=== PATIENT | female | born 1940 | race Caucasian/White ===

== ENCOUNTER 2021-01-13 10:14 | Inpatient (IN) | payer OTHER ==
[2021-01-13] MEDS ORDERED: PIPERACILLIN/TAZOB 4.5 GM 4.5 GM in DEXTROSE 5%-WATER 100 ML IVPB ONE (10:21)
[2021-01-13] MEDS ORDERED: VANCOMYCIN 1 GM in D5W (PRE-DOCKED) 1,000 MG/250 ML IVPB ONE (10:21)
[2021-01-13] MEDS ORDERED: ACETAMINOPHEN 1000 MG/100 ML VIAL (NON FORMULARY) IVPB ONE (10:21)
[2021-01-13 10:49] VITALS: BMI 25.4
[2021-01-13] MEDS ORDERED: SODIUM CHLORIDE 0.9% 500 ML INFUS.BAG IV ONE (10:50)
[2021-01-13 10:51] LABS: VENOUS BASE EXCESS 2.5 mmol/L (-2-2); VENOUS PCO2 45.4 mmHg (38-52); VENOUS PH 7.403 (7.310-7.410)
[2021-01-13 10:52] LABS: BASO % 0.4 % (0-2.0); HEMATOCRIT 33.2 % (32.4-45.2); HEMOGLOBIN 10.6 GM/dL (10.7-15.3); LYMPH % 5.8 % (8-40); MCH 28.3 pg (25.7-33.7); MCHC 31.8 g/dl (32.0-36.0); MEAN CELL VOLUME 88.9 fl (80-96); MEAN PLT VOLUME 9.2 fl (7.5-11.1); MONO % 5.3 % (3.8-10.2); NEUT % 88.5 % (42.8-82.8); PLATELET COUNT 376 10^3/uL (134-434); RBC 3.74 M/mm3 (3.60-5.2); RDW 16.6 % (11.6-15.6); WHITE BLOOD COUNT 23.7 K/mm3 (4.0-10.0)
[2021-01-13 11:00] LABS: INR 1.57 (0.83-1.09); PROTHROMBIN TIME (PATIENT) 18.8 SEC (9.7-13.0)
[2021-01-13 11:02] LABS: ACTIVATED PTT 30.4 SECONDS (25.2-36.5)
[2021-01-13 11:19] LABS: URINE APPEARANCE CLEAR; URINE BILIRUBIN NEGATIVE (NEGATIVE); URINE COLOR YELLOW; URINE GLUCOSE (UA) NEGATIVE (NEGATIVE)
[2021-01-13 11:20] LABS: HYALINE CASTS 347.86 /uL (0-3.1); URINE BACTERIA 20810.4 /uL (0-1359); URINE KETONE NEGATIVE (NEGATIVE); URINE LEUK ESTERASE 3+ (NEGATIVE); URINE NITRITE NEGATIVE (NEGATIVE); URINE PROTEIN 1+ (NEGATIVE); URINE RBC 108.5 /uL (0-23.9); URINE WBC 13448.3 /uL (0-25.8)
[2021-01-13 11:21] LABS: ALBUMIN 2.5 g/dl (3.4-5.0); BLOOD UREA NITROGEN 81.6 mg/dL (7-18); CALCIUM 9.3 mg/dL (8.5-10.1)
[2021-01-13 11:25] LABS: CREATININE 1.7 mg/dL (0.55-1.3)
[2021-01-13 11:26] LABS: BILIRUBIN,TOTAL 0.4 mg/dL (0.2-1); TOT PROT 9.2 g/dl (6.4-8.2)
[2021-01-13 11:27] LABS: LACTIC ACID 3.5 mmol/L (0.4-2.0)
[2021-01-13] MEDS ORDERED: PIPERACILLIN/TAZOB 4.5 GM 4.5 GM/100 ML BAG IVPB ONE (11:34)
[2021-01-13 11:35] LABS: YEAST NON SEEN (NEGATIVE)
[2021-01-13] MEDS ORDERED: SODIUM CHLORIDE 1,000 ML IV ONE (11:55)
[2021-01-13 12:41] LABS: ANISOCYTOSIS 1+; MACROCYTOSIS 0; OVALOCYTE 1+; PLATELET ESTIMATE NORMAL; TEAR DROP CELLS 1+
[2021-01-13 14:35] LABS: CALCIUM 8.4 mg/dL (8.5-10.1)
[2021-01-13 14:36] LABS: ALBUMIN 2.2 g/dl (3.4-5.0); BLOOD UREA NITROGEN 79.4 mg/dL (7-18)
[2021-01-13 14:39] LABS: CREATININE 1.7 mg/dL (0.55-1.3)
[2021-01-13 14:40] LABS: BILIRUBIN,TOTAL 0.4 mg/dL (0.2-1)
[2021-01-13 14:41] LABS: LACTIC ACID 2.3 mmol/L (0.4-2.0); TOT PROT 7.5 g/dl (6.4-8.2)
[2021-01-13] MEDS ORDERED: ACETAMINOPHEN 650 MG/20.3 ML ORAL SOLUTION (CUPS) PO PRN (15:14)
[2021-01-13] MEDS: SODIUM CHLORIDE 1,000 ML IV SCH (16:21)
[2021-01-13] MEDS ORDERED: PNEUMOC 13-VAL CONJ-DIP CRM/PF 0.5 ML DISP.SYRIN IM ONE (19:00)
[2021-01-13] MEDS ORDERED: PT OWN MED DRAWER 7, Y5N ONE (22:28)
[2021-01-13] MEDS: METOPROLOL TARTRATE 25 MG TABLET (FP) GT SCH (22:40)
[2021-01-13] MEDS: levETIRAcetam 500 MG/5 ML ORAL SOLUTION (UNIT-DOSE CUPS) GT SCH (23:20)
[2021-01-13] MEDS: ATORVASTATIN CA 10 MG TABLET (FP) GT SCH (23:20)
[2021-01-14] MEDS ORDERED: PIPERACILLIN/TAZOBACTAM 3.375 GM VIAL IVPB ONE ×3 (01:26→18:01)
[2021-01-14] MEDS ORDERED: DEXTROSE 5%-WATER - 50 ML IVPB ONE ×3 (01:26→18:01)
[2021-01-14] MEDS: PIPERACILLIN/TAZOB 3.375 GM 3.375 GM in DEXTROSE 5%-WATER - 50 ML IVPB SCH ×4 (01:42→19:01)
[2021-01-14] MEDS ORDERED: PIPERACILLIN/TAZOB 3.375 GM 3.375 GM in DEXTROSE 5%-WATER - 50 ML IVPB SCH (02:00)
[2021-01-14 07:49] LABS: HEMATOCRIT 25.3 % (32.4-45.2); HEMOGLOBIN 8.2 GM/dL (10.7-15.3); MCH 28.4 pg (25.7-33.7); MCHC 32.4 g/dl (32.0-36.0); MEAN CELL VOLUME 87.9 fl (80-96); MEAN PLT VOLUME 9.1 fl (7.5-11.1); PLATELET COUNT 230 10^3/uL (134-434); RBC 2.88 M/mm3 (3.60-5.2); RDW 16.4 % (11.6-15.6); WHITE BLOOD COUNT 12.9 K/mm3 (4.0-10.0)
[2021-01-14] MEDS: METOPROLOL TARTRATE 25 MG TABLET (FP) GT SCH ×2 (09:36→21:11)
[2021-01-14] MEDS: ASPIRIN 81 MG CHEWABLE TABLETS GT SCH (09:36)
[2021-01-14] MEDS: ENOXAPARIN NA (PORCINE) 30 MG/0.3 ML DISP.SYRIN SQ SCH (09:37)
[2021-01-14] MEDS: levETIRAcetam 500 MG/5 ML ORAL SOLUTION (UNIT-DOSE CUPS) GT SCH ×2 (09:50→21:12)
[2021-01-14] MEDS ORDERED: PT OWN MED DRAWER 7, Y5N ONE ×2 (09:57→21:12)
[2021-01-14] MEDS ORDERED: PANTOPRAZOLE SOD 40 MG SUSPENSION PACKET PO SCH (10:00)
[2021-01-14] MEDS: FAMOTIDINE 40 MG/5 ML ORAL SUSPENSION NGT SCH (10:31)
[2021-01-14] MEDS: POLYETHYLENE GLYCOL 3350 119 GM BTL GT SCH ×2 (10:41→16:45)
[2021-01-14 10:49] LABS: CALCIUM 8.4 mg/dL (8.5-10.1)
[2021-01-14 10:50] LABS: ALBUMIN 2.1 g/dl (3.4-5.0); BLOOD UREA NITROGEN 88.3 mg/dL (7-18)
[2021-01-14 10:53] LABS: CREATININE 1.6 mg/dL (0.55-1.3)
[2021-01-14 10:54] LABS: BILIRUBIN,TOTAL 0.4 mg/dL (0.2-1); TOT PROT 7.2 g/dl (6.4-8.2)
[2021-01-14 11:11] LABS: BASO % 0.4 % (0-2.0); EOS % 0.8 % (0-4.5); HEMATOCRIT 25.5 % (32.4-45.2); HEMOGLOBIN 8.1 GM/dL (10.7-15.3); LYMPH % 19.9 % (8-40); MCH 28.1 pg (25.7-33.7); MCHC 31.9 g/dl (32.0-36.0); MEAN CELL VOLUME 88.1 fl (80-96); MEAN PLT VOLUME 9.1 fl (7.5-11.1); MONO % 6.1 % (3.8-10.2); NEUT % 72.8 % (42.8-82.8); PLATELET COUNT 209 10^3/uL (134-434); RDW 16.6 % (11.6-15.6); WHITE BLOOD COUNT 12.2 K/mm3 (4.0-10.0)
[2021-01-14 11:38] LABS: CALCIUM 8.5 mg/dL (8.5-10.1)
[2021-01-14 11:42] LABS: CREATININE 1.5 mg/dL (0.55-1.3)
[2021-01-14 11:43] LABS: BILIRUBIN,TOTAL 0.4 mg/dL (0.2-1)
[2021-01-14] MEDS ORDERED: VANCOMYCIN 1,000 MG in DEXTROSE 5%-WATER - 250 ML IVPB SCH (12:00)
[2021-01-14] MEDS ORDERED: VANCOMYCIN 1 GRAM (PRE-DOCKED) 1,000 MG/250 ML BAG IVPB SCH (12:00)
[2021-01-14] MEDS: SODIUM CHLORIDE 1,000 ML IV SCH (16:46)
[2021-01-14] MEDS: POLYETHYLENE GLYCOL (HEALTHYLAX) 3350 17 GM PACKET GT SCH (17:00)
[2021-01-14] MEDS: ATORVASTATIN CA 10 MG TABLET (FP) GT SCH (21:11)
[2021-01-15] MEDS ORDERED: DEXTROSE 5%-WATER - 50 ML IVPB ONE ×3 (00:08→17:17)
[2021-01-15] MEDS ORDERED: PIPERACILLIN/TAZOBACTAM 3.375 GM VIAL IVPB ONE ×3 (00:08→17:17)
[2021-01-15] MEDS: PIPERACILLIN/TAZOB 3.375 GM 3.375 GM in DEXTROSE 5%-WATER - 50 ML IVPB SCH ×3 (01:11→17:19)
[2021-01-15] MEDS ORDERED: SODIUM CHLORIDE 0.45% 1,000 ML IV SCH (09:45)
[2021-01-15] MEDS ORDERED: PT OWN MED DRAWER 7, Y5N ONE ×2 (09:49→21:11)
[2021-01-15] MEDS: levETIRAcetam 500 MG/5 ML ORAL SOLUTION (UNIT-DOSE CUPS) GT SCH ×2 (09:53→21:46)
[2021-01-15] MEDS: ASPIRIN 81 MG CHEWABLE TABLETS GT SCH (09:53)
[2021-01-15] MEDS: METOPROLOL TARTRATE 25 MG TABLET (FP) GT SCH ×2 (09:53→21:46)
[2021-01-15] MEDS: POLYETHYLENE GLYCOL (HEALTHYLAX) 3350 17 GM PACKET GT SCH (09:53)
[2021-01-15] MEDS: FAMOTIDINE 40 MG/5 ML ORAL SUSPENSION NGT SCH (09:54)
[2021-01-15] MEDS: ENOXAPARIN NA (PORCINE) 30 MG/0.3 ML DISP.SYRIN SQ SCH (09:54)
[2021-01-15] MEDS: ATORVASTATIN CA 10 MG TABLET (FP) GT SCH (21:46)
[2021-01-16] MEDS ORDERED: DEXTROSE 5%-WATER - 50 ML IVPB ONE ×3 (01:36→17:17)
[2021-01-16] MEDS ORDERED: PIPERACILLIN/TAZOBACTAM 3.375 GM VIAL IVPB ONE ×3 (01:36→17:17)
[2021-01-16] MEDS: PIPERACILLIN/TAZOB 3.375 GM 3.375 GM in DEXTROSE 5%-WATER - 50 ML IVPB SCH ×3 (01:37→17:32)
[2021-01-16] MEDS ORDERED: PT OWN MED DRAWER 7, Y5N ONE ×2 (09:50→21:18)
[2021-01-16] MEDS: FAMOTIDINE 40 MG/5 ML ORAL SUSPENSION NGT SCH (10:26)
[2021-01-16] MEDS: ENOXAPARIN NA (PORCINE) 30 MG/0.3 ML DISP.SYRIN SQ SCH (10:26)
[2021-01-16] MEDS: levETIRAcetam 500 MG/5 ML ORAL SOLUTION (UNIT-DOSE CUPS) GT SCH ×2 (10:26→21:49)
[2021-01-16] MEDS: ASPIRIN 81 MG CHEWABLE TABLETS GT SCH (10:26)
[2021-01-16] MEDS: POLYETHYLENE GLYCOL (HEALTHYLAX) 3350 17 GM PACKET GT SCH (10:27)
[2021-01-16] MEDS: METOPROLOL TARTRATE 25 MG TABLET (FP) GT SCH ×2 (10:27→21:49)
[2021-01-16 11:21] LABS: BASO % 0.7 % (0-2.0); EOS % 2.5 % (0-4.5); HEMATOCRIT 25.4 % (32.4-45.2); HEMOGLOBIN 8.1 GM/dL (10.7-15.3); MCH 28.5 pg (25.7-33.7); MEAN CELL VOLUME 88.9 fl (80-96); MEAN PLT VOLUME 9.2 fl (7.5-11.1); MONO % 6.7 % (3.8-10.2); NEUT % 70.1 % (42.8-82.8); PLATELET COUNT 275 10^3/uL (134-434); RBC 2.86 M/mm3 (3.60-5.2); RDW 16.6 % (11.6-15.6); WHITE BLOOD COUNT 9.9 K/mm3 (4.0-10.0)
[2021-01-16 11:45] LABS: BLOOD UREA NITROGEN 60.8 mg/dL (7-18)
[2021-01-16 11:48] LABS: CREATININE 1.4 mg/dL (0.55-1.3)
[2021-01-16] MEDS ORDERED: KCL 10 MEQ IVPB 10 MEQ/100 ML INFUS.BAG IVPB SCH (13:45)
[2021-01-16] MEDS: ATORVASTATIN CA 10 MG TABLET (FP) GT SCH (21:49)
[2021-01-17] MEDS ORDERED: PIPERACILLIN/TAZOBACTAM 3.375 GM VIAL IVPB ONE ×3 (01:03→17:17)
[2021-01-17] MEDS ORDERED: DEXTROSE 5%-WATER - 50 ML IVPB ONE ×3 (01:03→17:17)
[2021-01-17] MEDS: PIPERACILLIN/TAZOB 3.375 GM 3.375 GM in DEXTROSE 5%-WATER - 50 ML IVPB SCH ×3 (01:17→17:22)
[2021-01-17] MEDS: ACETAMINOPHEN 650 MG/20.3 ML ORAL SOLUTION (CUPS) GT PRN (06:20)
[2021-01-17 06:49] LABS: CALCIUM 7.8 mg/dL (8.5-10.1)
[2021-01-17 06:50] LABS: BLOOD UREA NITROGEN 50.8 mg/dL (7-18); MAGNESIUM 2.2 mg/dL (1.8-2.4)
[2021-01-17 06:53] LABS: CREATININE 1.3 mg/dL (0.55-1.3)
[2021-01-17 07:18] LABS: HEMOGLOBIN 8.5 GM/dL (10.7-15.3); MCH 28.1 pg (25.7-33.7); MCHC 31.4 g/dl (32.0-36.0); MEAN CELL VOLUME 89.4 fl (80-96); MEAN PLT VOLUME 9.2 fl (7.5-11.1); PLATELET COUNT 262 10^3/uL (134-434); RBC 3.02 M/mm3 (3.60-5.2); RDW 16.6 % (11.6-15.6); WHITE BLOOD COUNT 9.5 K/mm3 (4.0-10.0)
[2021-01-17] MEDS: METOPROLOL TARTRATE 25 MG TABLET (FP) GT SCH ×2 (09:14→21:12)
[2021-01-17] MEDS: ENOXAPARIN NA (PORCINE) 30 MG/0.3 ML DISP.SYRIN SQ SCH (09:14)
[2021-01-17] MEDS: ASPIRIN 81 MG CHEWABLE TABLETS GT SCH (09:14)
[2021-01-17] MEDS: levETIRAcetam 500 MG/5 ML ORAL SOLUTION (UNIT-DOSE CUPS) GT SCH ×2 (09:17→21:12)
[2021-01-17] MEDS: FAMOTIDINE 40 MG/5 ML ORAL SUSPENSION NGT SCH (09:17)
[2021-01-17] MEDS ORDERED: PT OWN MED DRAWER 7, Y5N ONE ×2 (09:17→21:09)
[2021-01-17] MEDS: POLYETHYLENE GLYCOL (HEALTHYLAX) 3350 17 GM PACKET GT SCH (10:25)
[2021-01-17] MEDS: DEXTROSE 5%-WATER - 1,000 ML IV SCH (12:00)
[2021-01-17 14:08] LABS: HEP B CORE AB, TOT Negative (Negative)
[2021-01-17] MEDS: PANTOPRAZOLE SODIUM 40 MG VIAL IVPUSH SCH (21:12)
[2021-01-17] MEDS: ATORVASTATIN CA 10 MG TABLET (FP) GT SCH (21:12)
[2021-01-18] MEDS ORDERED: PIPERACILLIN/TAZOBACTAM 3.375 GM VIAL IVPB ONE ×4 (01:28→17:28)
[2021-01-18] MEDS ORDERED: DEXTROSE 5%-WATER - 50 ML IVPB ONE ×3 (01:28→17:28)
[2021-01-18] MEDS: PIPERACILLIN/TAZOB 3.375 GM 3.375 GM in DEXTROSE 5%-WATER - 50 ML IVPB SCH ×3 (01:31→17:38)
[2021-01-18 06:54] LABS: ALBUMIN 1.7 g/dl (3.4-5.0); CALCIUM 7.6 mg/dL (8.5-10.1)
[2021-01-18 06:55] LABS: BLOOD UREA NITROGEN 42.1 mg/dL (7-18); MAGNESIUM 2.1 mg/dL (1.8-2.4)
[2021-01-18 06:58] LABS: CREATININE 1.2 mg/dL (0.55-1.3); PHOSPHOROUS 2.7 mg/dL (2.5-4.9)
[2021-01-18 06:59] LABS: BILIRUBIN,TOTAL 0.3 mg/dL (0.2-1); TOT PROT 6.2 g/dl (6.4-8.2)
[2021-01-18] MEDS ORDERED: PT OWN MED DRAWER 7, Y5N ONE ×2 (11:05→21:39)
[2021-01-18] MEDS: ENOXAPARIN NA (PORCINE) 30 MG/0.3 ML DISP.SYRIN SQ SCH (11:20)
[2021-01-18] MEDS: levETIRAcetam 500 MG/5 ML ORAL SOLUTION (UNIT-DOSE CUPS) GT SCH ×2 (11:20→21:37)
[2021-01-18] MEDS: PANTOPRAZOLE SODIUM 40 MG VIAL IVPUSH SCH ×2 (11:20→21:37)
[2021-01-18] MEDS: METOPROLOL TARTRATE 25 MG TABLET (FP) GT SCH ×2 (11:20→21:37)
[2021-01-18] MEDS: ASPIRIN 81 MG CHEWABLE TABLETS GT SCH (11:20)
[2021-01-18] MEDS: POLYETHYLENE GLYCOL (HEALTHYLAX) 3350 17 GM PACKET GT SCH (11:20)
[2021-01-18] MEDS: DEXTROSE 5%-WATER - 1,000 ML IV SCH (13:45)
[2021-01-18] MEDS: ATORVASTATIN CA 10 MG TABLET (FP) GT SCH (21:37)
[2021-01-19] MEDS ORDERED: PIPERACILLIN/TAZOBACTAM 3.375 GM VIAL IVPB ONE ×4 (00:43→21:08)
[2021-01-19] MEDS ORDERED: DEXTROSE 5%-WATER - 50 ML IVPB ONE ×4 (00:43→21:08)
[2021-01-19] MEDS: PIPERACILLIN/TAZOB 3.375 GM 3.375 GM in DEXTROSE 5%-WATER - 50 ML IVPB SCH ×3 (01:00→17:29)
[2021-01-19] MEDS ORDERED: DEXTROSE 5%-WATER - 1,000 ML IV SCH (06:15)
[2021-01-19] MEDS ORDERED: dilTIAZem HCL 125 MG/25 ML - 25 ML VIAL ONE (08:36)
[2021-01-19] MEDS ORDERED: METOPROLOL TARTRATE 5 MG/5 ML VIAL ONE (08:50)
[2021-01-19] MEDS ORDERED: dilTIAZem HCL 50 MG/10 ML - 10 ML VIAL IVPUSH ONE (08:55)
[2021-01-19] MEDS ORDERED: METOPROLOL TARTRATE 5 MG/5 ML VIAL IVPUSH ONE (09:00)
[2021-01-19] MEDS: METOPROLOL TARTRATE 25 MG TABLET (FP) GT SCH ×2 (09:10→21:18)
[2021-01-19] MEDS: ACETAMINOPHEN 650 MG/20.3 ML ORAL SOLUTION (CUPS) GT PRN (10:02)
[2021-01-19] MEDS: ASPIRIN 81 MG CHEWABLE TABLETS GT SCH (10:03)
[2021-01-19] MEDS: PANTOPRAZOLE SODIUM 40 MG VIAL IVPUSH SCH ×2 (10:03→21:18)
[2021-01-19] MEDS: ENOXAPARIN NA (PORCINE) 30 MG/0.3 ML DISP.SYRIN SQ SCH (10:03)
[2021-01-19] MEDS: levETIRAcetam 500 MG/5 ML ORAL SOLUTION (UNIT-DOSE CUPS) GT SCH ×2 (10:04→21:18)
[2021-01-19] MEDS: POLYETHYLENE GLYCOL (HEALTHYLAX) 3350 17 GM PACKET GT SCH (10:04)
[2021-01-19 10:22] LABS: BASO % 0.3 % (0-2.0); EOS % 0.8 % (0-4.5); HEMATOCRIT 29.9 % (32.4-45.2); HEMOGLOBIN 9.2 GM/dL (10.7-15.3); LYMPH % 7.1 % (8-40); MCH 27.5 pg (25.7-33.7); MCHC 30.8 g/dl (32.0-36.0); MEAN CELL VOLUME 89.1 fl (80-96); MEAN PLT VOLUME 9.3 fl (7.5-11.1); MONO % 4.8 % (3.8-10.2); PLATELET COUNT 347 10^3/uL (134-434); RBC 3.36 M/mm3 (3.60-5.2); WHITE BLOOD COUNT 16.6 K/mm3 (4.0-10.0)
[2021-01-19 10:47] LABS: BLOOD UREA NITROGEN 37.6 mg/dL (7-18)
[2021-01-19 10:50] LABS: CREATININE 1.3 mg/dL (0.55-1.3); PHOSPHOROUS 3.4 mg/dL (2.5-4.9)
[2021-01-19 10:51] LABS: BILIRUBIN,TOTAL 0.5 mg/dL (0.2-1); TOT PROT 7.1 g/dl (6.4-8.2)
[2021-01-19] MEDS ORDERED: PT OWN MED DRAWER 7, Y5N ONE (21:08)
[2021-01-19] MEDS: ATORVASTATIN CA 10 MG TABLET (FP) GT SCH (21:18)
[2021-01-20] MEDS: PIPERACILLIN/TAZOB 3.375 GM 3.375 GM in DEXTROSE 5%-WATER - 50 ML IVPB SCH ×3 (02:00→17:44)
[2021-01-20 06:59] LABS: BASO % 0.3 % (0-2.0); EOS % 3.4 % (0-4.5); HEMATOCRIT 23.2 % (32.4-45.2); HEMOGLOBIN 7.5 GM/dL (10.7-15.3); MCH 28.2 pg (25.7-33.7); MCHC 32.2 g/dl (32.0-36.0); MEAN CELL VOLUME 87.7 fl (80-96); MEAN PLT VOLUME 9.2 fl (7.5-11.1); NEUT % 59.3 % (42.8-82.8); PLATELET COUNT 249 10^3/uL (134-434); RBC 2.65 M/mm3 (3.60-5.2); RDW 16.5 % (11.6-15.6); WHITE BLOOD COUNT 10.4 K/mm3 (4.0-10.0)
[2021-01-20 07:16] LABS: ALBUMIN 1.6 g/dl (3.4-5.0); CALCIUM 7.9 mg/dL (8.5-10.1)
[2021-01-20 07:17] LABS: BLOOD UREA NITROGEN 33.5 mg/dL (7-18)
[2021-01-20 07:20] LABS: CREATININE 1.3 mg/dL (0.55-1.3)
[2021-01-20 07:21] LABS: BILIRUBIN,TOTAL 0.3 mg/dL (0.2-1)
[2021-01-20] MEDS ORDERED: PT OWN MED DRAWER 7, Y5N ONE ×2 (10:14→23:14)
[2021-01-20] MEDS ORDERED: PIPERACILLIN/TAZOBACTAM 3.375 GM VIAL IVPB ONE ×2 (10:15→17:06)
[2021-01-20] MEDS ORDERED: DEXTROSE 5%-WATER - 50 ML IVPB ONE ×2 (10:15→17:06)
[2021-01-20] MEDS: POLYETHYLENE GLYCOL (HEALTHYLAX) 3350 17 GM PACKET GT SCH (10:23)
[2021-01-20] MEDS: levETIRAcetam 500 MG/5 ML ORAL SOLUTION (UNIT-DOSE CUPS) GT SCH ×2 (10:23→22:00)
[2021-01-20] MEDS: ENOXAPARIN NA (PORCINE) 30 MG/0.3 ML DISP.SYRIN SQ SCH (10:24)
[2021-01-20] MEDS: ASPIRIN 81 MG CHEWABLE TABLETS GT SCH (10:24)
[2021-01-20] MEDS: PANTOPRAZOLE SODIUM 40 MG VIAL IVPUSH SCH ×2 (10:24→22:00)
[2021-01-20] MEDS: KCL 10 MEQ IVPB 10 MEQ/100 ML INFUS.BAG IVPB SCH ×2 (10:24→11:55)
[2021-01-20] MEDS: METOPROLOL TARTRATE 25 MG TABLET (FP) GT SCH ×2 (10:25→22:00)
[2021-01-20] MEDS ORDERED: POTASSIUM CHLORIDE ORAL LIQUID 20 MEQ/15 ML PO ONE (13:15)
[2021-01-20] MEDS: AMINO ACIDS/PROTEIN HYDROLYS 30 ML LIQUID.PKT PO SCH (17:44)
[2021-01-20] MEDS: ATORVASTATIN CA 10 MG TABLET (FP) GT SCH (22:00)
[2021-01-21] MEDS: PIPERACILLIN/TAZOB 3.375 GM 3.375 GM in DEXTROSE 5%-WATER - 50 ML IVPB SCH ×2 (02:00→10:04)
[2021-01-21] MEDS ORDERED: PIPERACILLIN/TAZOBACTAM 3.375 GM VIAL IVPB ONE ×2 (04:19→09:15)
[2021-01-21] MEDS ORDERED: DEXTROSE 5%-WATER - 50 ML IVPB ONE ×2 (04:19→09:15)
[2021-01-21 07:27] LABS: BASO % 0.3 % (0-2.0); EOS % 2.2 % (0-4.5); HEMATOCRIT 25.5 % (32.4-45.2); HEMOGLOBIN 8.6 GM/dL (10.7-15.3); LYMPH % 25.3 % (8-40); MCH 28.5 pg (25.7-33.7); MCHC 33.6 g/dl (32.0-36.0); MEAN CELL VOLUME 84.9 fl (80-96); MEAN PLT VOLUME 8.9 fl (7.5-11.1); MONO % 8.3 % (3.8-10.2); NEUT % 63.9 % (42.8-82.8); PLATELET COUNT 295 10^3/uL (134-434); RBC 3.01 M/mm3 (3.60-5.2); RDW 16.8 % (11.6-15.6); WHITE BLOOD COUNT 10.1 K/mm3 (4.0-10.0)
[2021-01-21 07:48] LABS: ALBUMIN 1.7 g/dl (3.4-5.0); BLOOD UREA NITROGEN 29.6 mg/dL (7-18)
[2021-01-21 07:51] LABS: CREATININE 1.2 mg/dL (0.55-1.3)
[2021-01-21 07:52] LABS: BILIRUBIN,TOTAL 0.6 mg/dL (0.2-1); TOT PROT 6.3 g/dl (6.4-8.2)
[2021-01-21] MEDS: AMINO ACIDS/PROTEIN HYDROLYS 30 ML LIQUID.PKT PO SCH ×2 (10:03→18:14)
[2021-01-21] MEDS: PANTOPRAZOLE SODIUM 40 MG VIAL IVPUSH SCH ×2 (10:04→21:31)
[2021-01-21] MEDS: ASPIRIN 81 MG CHEWABLE TABLETS GT SCH (10:04)
[2021-01-21] MEDS: POLYETHYLENE GLYCOL (HEALTHYLAX) 3350 17 GM PACKET GT SCH (10:04)
[2021-01-21] MEDS: METOPROLOL TARTRATE 25 MG TABLET (FP) GT SCH ×2 (10:04→21:31)
[2021-01-21] MEDS: ACETAMINOPHEN 650 MG/20.3 ML ORAL SOLUTION (CUPS) GT PRN (10:04)
[2021-01-21] MEDS: levETIRAcetam 500 MG/5 ML ORAL SOLUTION (UNIT-DOSE CUPS) GT SCH ×2 (10:04→21:30)
[2021-01-21] MEDS: AMIODARONE HCL 200 MG TABLET GT SCH ×2 (18:14→21:32)
[2021-01-21] MEDS: ATORVASTATIN CA 10 MG TABLET (FP) GT SCH (21:31)
[2021-01-22] MEDS ORDERED: PT OWN MED DRAWER 7, Y5N ONE ×2 (09:22→22:36)
[2021-01-22] MEDS: levETIRAcetam 500 MG/5 ML ORAL SOLUTION (UNIT-DOSE CUPS) GT SCH ×2 (09:35→22:37)
[2021-01-22] MEDS: ASPIRIN 81 MG CHEWABLE TABLETS GT SCH (09:35)
[2021-01-22] MEDS: AMIODARONE HCL 200 MG TABLET GT SCH ×2 (09:35→22:37)
[2021-01-22] MEDS: METOPROLOL TARTRATE 25 MG TABLET (FP) GT SCH ×2 (09:35→22:37)
[2021-01-22] MEDS: PANTOPRAZOLE SODIUM 40 MG VIAL IVPUSH SCH ×2 (09:35→22:38)
[2021-01-22] MEDS: AMINO ACIDS/PROTEIN HYDROLYS 30 ML LIQUID.PKT PO SCH ×2 (09:35→17:38)
[2021-01-22] MEDS: POLYETHYLENE GLYCOL (HEALTHYLAX) 3350 17 GM PACKET GT SCH (09:35)
[2021-01-22] MEDS: ACETAMINOPHEN 650 MG/20.3 ML ORAL SOLUTION (CUPS) GT PRN ×2 (09:39→22:37)
[2021-01-22] MEDS: ATORVASTATIN CA 10 MG TABLET (FP) GT SCH (22:37)
[2021-01-23 07:36] LABS: BASO % 0.3 % (0-2.0); EOS % 1.3 % (0-4.5); HEMATOCRIT 28.8 % (32.4-45.2); HEMOGLOBIN 9.4 GM/dL (10.7-15.3); LYMPH % 23.8 % (8-40); MCH 28.5 pg (25.7-33.7); MCHC 32.7 g/dl (32.0-36.0); MEAN CELL VOLUME 86.9 fl (80-96); MEAN PLT VOLUME 8.7 fl (7.5-11.1); NEUT % 66.6 % (42.8-82.8); PLATELET COUNT 352 10^3/uL (134-434); RBC 3.31 M/mm3 (3.60-5.2); RDW 16.8 % (11.6-15.6); WHITE BLOOD COUNT 10.8 K/mm3 (4.0-10.0)
[2021-01-23 07:45] LABS: CALCIUM 8.1 mg/dL (8.5-10.1)
[2021-01-23 07:46] LABS: ALBUMIN 1.8 g/dl (3.4-5.0); BLOOD UREA NITROGEN 37.6 mg/dL (7-18)
[2021-01-23 07:49] LABS: CREATININE 1.2 mg/dL (0.55-1.3)
[2021-01-23 07:50] LABS: BILIRUBIN,TOTAL 0.3 mg/dL (0.2-1)
[2021-01-23 07:51] LABS: TOT PROT 6.5 g/dl (6.4-8.2)
[2021-01-23] MEDS ORDERED: PT OWN MED DRAWER 7, Y5N ONE ×2 (08:36→09:51)
[2021-01-23] MEDS: AMINO ACIDS/PROTEIN HYDROLYS 30 ML LIQUID.PKT PO SCH ×2 (08:41→17:54)
[2021-01-23] MEDS: ASPIRIN 81 MG CHEWABLE TABLETS GT SCH (09:47)
[2021-01-23] MEDS: ACETAMINOPHEN 650 MG/20.3 ML ORAL SOLUTION (CUPS) GT PRN (09:47)
[2021-01-23] MEDS: AMIODARONE HCL 200 MG TABLET GT SCH ×2 (09:47→21:18)
[2021-01-23] MEDS: METOPROLOL TARTRATE 25 MG TABLET (FP) GT SCH ×2 (09:47→21:18)
[2021-01-23] MEDS: POLYETHYLENE GLYCOL (HEALTHYLAX) 3350 17 GM PACKET GT SCH (09:48)
[2021-01-23] MEDS: levETIRAcetam 500 MG/5 ML ORAL SOLUTION (UNIT-DOSE CUPS) GT SCH ×2 (09:55→21:18)
[2021-01-23] MEDS ORDERED: PANTOPRAZOLE 40 MG TABLET PO SCH (10:00)
[2021-01-23] MEDS ORDERED: FAMOTIDINE 40 MG/5 ML ORAL SUSPENSION PO SCH (18:05)
[2021-01-23] MEDS: ATORVASTATIN CA 10 MG TABLET (FP) GT SCH (21:18)
[2021-01-23] MEDS: FAMOTIDINE 40 MG/5 ML ORAL SUSPENSION PEG SCH (21:18)
[2021-01-24] MEDS: POLYETHYLENE GLYCOL (HEALTHYLAX) 3350 17 GM PACKET GT SCH (10:09)
[2021-01-24] MEDS: ASPIRIN 81 MG CHEWABLE TABLETS GT SCH (10:09)
[2021-01-24] MEDS: AMINO ACIDS/PROTEIN HYDROLYS 30 ML LIQUID.PKT PO SCH ×2 (10:09→16:56)
[2021-01-24] MEDS: AMIODARONE HCL 200 MG TABLET GT SCH ×2 (10:09→21:40)
[2021-01-24] MEDS: levETIRAcetam 500 MG/5 ML ORAL SOLUTION (UNIT-DOSE CUPS) GT SCH ×2 (10:10→21:40)
[2021-01-24] MEDS: FAMOTIDINE 40 MG/5 ML ORAL SUSPENSION PEG SCH ×2 (10:11→21:40)
[2021-01-24] MEDS: METOPROLOL TARTRATE 25 MG TABLET (FP) GT SCH ×2 (10:12→21:40)
[2021-01-24] MEDS: ATORVASTATIN CA 10 MG TABLET (FP) GT SCH (21:40)
[2021-01-25] MEDS ORDERED: PT OWN MED DRAWER 7, Y5N ONE ×4 (08:31→10:28)
[2021-01-25] MEDS: AMINO ACIDS/PROTEIN HYDROLYS 30 ML LIQUID.PKT PO SCH ×2 (08:51→18:19)
[2021-01-25] MEDS: ASPIRIN 81 MG CHEWABLE TABLETS GT SCH (09:39)
[2021-01-25] MEDS: levETIRAcetam 500 MG/5 ML ORAL SOLUTION (UNIT-DOSE CUPS) GT SCH ×2 (09:39→21:37)
[2021-01-25] MEDS: AMIODARONE HCL 200 MG TABLET GT SCH ×2 (09:39→21:37)
[2021-01-25] MEDS: POLYETHYLENE GLYCOL (HEALTHYLAX) 3350 17 GM PACKET GT SCH (09:39)
[2021-01-25] MEDS: METOPROLOL TARTRATE 25 MG TABLET (FP) GT SCH ×2 (09:40→21:37)
[2021-01-25] MEDS: FAMOTIDINE 40 MG/5 ML ORAL SUSPENSION PEG SCH ×2 (10:35→21:37)
[2021-01-25] MEDS: ATORVASTATIN CA 10 MG TABLET (FP) GT SCH (21:37)
[2021-01-26] MEDS ORDERED: PT OWN MED DRAWER 7, Y5N ONE ×3 (08:56→20:23)
[2021-01-26] MEDS: FAMOTIDINE 40 MG/5 ML ORAL SUSPENSION PEG SCH ×2 (09:04→21:21)
[2021-01-26] MEDS: METOPROLOL TARTRATE 25 MG TABLET (FP) GT SCH ×2 (09:04→21:21)
[2021-01-26] MEDS: AMINO ACIDS/PROTEIN HYDROLYS 30 ML LIQUID.PKT PO SCH ×2 (09:04→17:32)
[2021-01-26] MEDS: ASPIRIN 81 MG CHEWABLE TABLETS GT SCH (09:04)
[2021-01-26] MEDS: levETIRAcetam 500 MG/5 ML ORAL SOLUTION (UNIT-DOSE CUPS) GT SCH ×2 (09:05→21:21)
[2021-01-26] MEDS: POLYETHYLENE GLYCOL (HEALTHYLAX) 3350 17 GM PACKET GT SCH (09:06)
[2021-01-26] MEDS: AMIODARONE HCL 200 MG TABLET GT SCH ×2 (09:06→21:21)
[2021-01-26] MEDS: ATORVASTATIN CA 10 MG TABLET (FP) GT SCH (21:21)
[2021-01-27] MEDS ORDERED: PT OWN MED DRAWER 7, Y5N ONE (09:37)
[2021-01-27] MEDS: METOPROLOL TARTRATE 25 MG TABLET (FP) GT SCH ×2 (09:42→21:52)
[2021-01-27] MEDS: AMIODARONE HCL 200 MG TABLET GT SCH ×2 (09:42→21:51)
[2021-01-27] MEDS: AMINO ACIDS/PROTEIN HYDROLYS 30 ML LIQUID.PKT PO SCH ×2 (09:42→19:00)
[2021-01-27] MEDS: ASPIRIN 81 MG CHEWABLE TABLETS GT SCH (09:42)
[2021-01-27] MEDS: FAMOTIDINE 40 MG/5 ML ORAL SUSPENSION PEG SCH ×2 (09:43→21:52)
[2021-01-27] MEDS: levETIRAcetam 500 MG/5 ML ORAL SOLUTION (UNIT-DOSE CUPS) GT SCH ×2 (09:44→21:52)
[2021-01-27] MEDS: POLYETHYLENE GLYCOL (HEALTHYLAX) 3350 17 GM PACKET GT SCH (12:00)
[2021-01-27] MEDS ORDERED: morphine CARPU-JECT 8 MG/1 ML DISP.SYRIN IVPUSH ONE (12:48)
[2021-01-27] MEDS ORDERED: LORazepam 2 MG/ML SDV VIAL IVPUSH ONE (12:51)
[2021-01-27] MEDS ORDERED: LORazepam 2 MG/ML SDV VIAL IVPUSH PRN (12:52)
[2021-01-27] MEDS ORDERED: morphine SULFATE 4 MG/ML VIAL ONE (13:02)
[2021-01-27] MEDS: MORPHINE SULFATE/0.9% NACL/PF 100 MG/100 ML BAG IVPB SCH (14:34)
[2021-01-27] MEDS: ATORVASTATIN CA 10 MG TABLET (FP) GT SCH (21:52)
[2021-01-28] MEDS: AMINO ACIDS/PROTEIN HYDROLYS 30 ML LIQUID.PKT PO SCH ×2 (09:56→17:34)
[2021-01-28] MEDS: AMIODARONE HCL 200 MG TABLET GT SCH ×2 (09:56→22:15)
[2021-01-28] MEDS: POLYETHYLENE GLYCOL (HEALTHYLAX) 3350 17 GM PACKET GT SCH (09:56)
[2021-01-28] MEDS: levETIRAcetam 500 MG/5 ML ORAL SOLUTION (UNIT-DOSE CUPS) GT SCH ×2 (09:56→22:15)
[2021-01-28] MEDS: ASPIRIN 81 MG CHEWABLE TABLETS GT SCH (09:56)
[2021-01-28] MEDS: METOPROLOL TARTRATE 25 MG TABLET (FP) GT SCH ×2 (09:57→22:15)
[2021-01-28] MEDS: FAMOTIDINE 40 MG/5 ML ORAL SUSPENSION PEG SCH ×2 (09:57→22:15)
[2021-01-28] MEDS ORDERED: SCOPOLAMINE HYDROBROMIDE 1 PATCH PATCH.TD72 TD SCH (13:15)
[2021-01-28] MEDS: MORPHINE SULFATE/0.9% NACL/PF 100 MG/100 ML BAG IVPB SCH (17:34)
[2021-01-29] MEDS: AMINO ACIDS/PROTEIN HYDROLYS 30 ML LIQUID.PKT PO SCH ×2 (10:37→17:20)
[2021-01-29] MEDS: AMIODARONE HCL 200 MG TABLET GT SCH (10:37)
[2021-01-29] MEDS: FAMOTIDINE 40 MG/5 ML ORAL SUSPENSION PEG SCH (10:38)
[2021-01-29] MEDS: levETIRAcetam 500 MG/5 ML ORAL SOLUTION (UNIT-DOSE CUPS) GT SCH (10:38)
[2021-01-29] MEDS: METOPROLOL TARTRATE 25 MG TABLET (FP) GT SCH (10:38)
[2021-01-29] MEDS: POLYETHYLENE GLYCOL (HEALTHYLAX) 3350 17 GM PACKET GT SCH (10:38)
[2021-01-29 17:19] VITALS: BP 126/48; PULSE 100; TEMP 98.8
[2021-01-29] MEDS: MORPHINE SULFATE/0.9% NACL/PF 100 MG/100 ML BAG IVPB SCH (17:19)
== END 2021-01-29 23:35 | disposition expired | DRG 870 ==
LOC: JER 10:14 → JERBED 15:11 → J2W 17:40
PROVIDERS: ADMIT Family Medicine; ATTEND Family Medicine
PROC: 5A1955Z Respiratory Ventilation, Greater than 96 Consecutive Hours (ICD-10-PCS; principal; 2021-01-13)
PROC: 3E0G76Z Introduction of Nutritional Substance into Upper GI, Via Natural or Artificial Opening (ICD-10-PCS; 2021-01-13)
PROC: 30233N1 Transfusion of Nonautologous Red Blood Cells into Peripheral Vein, Percutaneous Approach (ICD-10-PCS; 2021-01-20)
DX: A41.59 Other Gram-negative sepsis (principal); L89.153 Pressure ulcer of sacral region, stage 3; J15.6 Pneumonia due to other Gram-negative bacteria; J96.10 Chronic respiratory failure, unspecified whether with hypoxia or hypercapnia; E87.0 Hyperosmolality and hypernatremia; N17.9 Acute kidney failure, unspecified; N39.0 Urinary tract infection, site not specified; Z93.0 Tracheostomy status; Z93.1 Gastrostomy status; I10 Essential (primary) hypertension; I48.0 Paroxysmal atrial fibrillation; I95.9 Hypotension, unspecified; K21.9 Gastro-esophageal reflux disease without esophagitis; E78.5 Hyperlipidemia, unspecified; R00.0 Tachycardia, unspecified
CPT/HCPCS: 36415; 36430; 36511; 71045-TC-FY; 80048; 80053; 81003; 82570; 82728; 82803; 82962; 83540; 83550; 83605; 83735; 84100; 84155; 84156; 84165; 84300; 84484; 85025; 85027; 85610; 85730; 86038; 86704; 86706; 86707; 86708; 86709; 86803; 86850; 86900; 86901; 86922; 87040; 87070; 87086; 87186; 87205; 87340; 87804; 87899; 93005; 93010; 94002; 99291; C9803; G0480; J0131; P9038; P9058; U0003; U0005